=== PATIENT | male | born 1990 | race Two or more races ===

== ENCOUNTER 2018-10-31 16:32 | Emergency (ER) | payer MEDICAID ==
--- NOTE | 2018-10-31 18:05 | ED Physician Chart ---
ED Chief Complaint/HPI - Patient Information Date Seen:: 10/31/18 Time Seen:: 16:40 Chief Complaint:: Right Hand Pain History of Present Illness:: onset x 24 hours of intermittent MS type right hand pain after an accidental contact injury 24 hours [employer]; pt denies LOC, ALOC, AMS, H/As, decreased activity , visual or gait changes, weakness, dizziness, paresthesias, vertigo, neck pain , cough, SIs, C/P, SOB, Abd. Pain, A/N/V/D/C, fever, chills, bleeding, or urinary s/s; pt tried no pain medications; pt's last tetanus shot: < 5 years; UTD Allergies:: Allergies Allergy/AdvReac Type Severity Reaction Status Date / Time No Known Allergies Allergy Verified 10/31/18 16:40 Vitals:: Vital Signs - 8 hr 10/31/18 16:41 Temp 98.4 F HR 68 RR 16 BP 128/7 O2 Sat % 98 Historian:: Patient, Family Member Review:: Nurse's Note Reviewed, Old Chart Reviewed ED Review of Systems - Review of Systems General/Constitutional: No fever, No chills, No weight loss, No weakness, No diaphoresis, No edema, No loss of appetite Skin: No skin lesions, No rash, No bruising Head: No headache, No light-headedness Eyes: No loss of vision, No pain, No diplopia ENT: No earache, No nasal drainage, No sore throat, No tinnitus Neck: No neck pain, No swelling, No thyromegaly, No stiffness, No mass noted Cardio Vascular: No chest pain, No palpitations, No PND, No orthopnea, No edema Pulmonary: No SOB, No cough, No sputum, No wheezing GI: No nausea, No vomiting, No diarrhea, No pain, No melena, No hematochezia, No constipation, No hematemesis G/U: No dysuria, No frequency, No hematuria, No nacturia Musculoskeletal: No bone or joint pain, No back pain, No muscle pain Endocrine: No polyuria, No polydipsia Psychiatric: No prior psych history, No depression, No anxiety, No suicidal ideation, No homicidal ideation, No auditory hallucination, No visual hallucination Hematopoietic: No bruising, No lymphadenopathy Allergic/Immuno: No urticaria, No angioedema Neurological: No syncope, No focal symptoms, No weakness, No paresthesia, No headache, No seizure, No dizziness, No confusion, No vertigo ED Past Medical History - Past Medical History Obtainable: Yes Past Medical History: No significant medical hx Family History: None Social History: Non Smoker, No Alcohol, No Drug Use, Single Surgical History: None Psychiatricy History: None Medication: Reviewed Family Medical History - Family Member Mother History Unknown: Yes ED Physical Exam - Physical Examination General/Constitutional: Awake, Well-developed, well-nourished, Alert, No distress, GCS 15, Non-toxic appearing, Ambulatory Head: Atraumatic Eyes: Lids, conjuctiva normal, PERRL, EOMI Skin: Nl inspection, No rash, No skin lesions, No ecchymosis, Well hydrated, No lymphadenopathy ENMT: External ears, nose nl, TM canals nl, Nasal exam nl, Lips, teeth, gums nl , Oropharynx nl, Tonsils nl Neck: Nontender, Full ROM w/o pain, No JVD, No nuchal rigidity, No bruit, No mass, No stridor Other Neck comments:: supple; no meningeal signs; no cervical tenderness; no bruits Respiratory: Nl effort/Exclusion, Clear to Auscultation, No Wheeze/Rhonchi/Rales Cardio Vascular: RRR, No murmur, gallop, rubs, NL S1 S2, Carotid/Femoral/Distal pulses equal bilaterally GI: No tenderness/rebounding/guarding, No organomegaly, No hernia, Normal BS's, Nondistended, No mass/bruits, No McBurney tenderness, Rectum exam nl Other GI comments:: no pulsatile masses : No CVA tenderness Extremities: No tenderness or effusion, Full ROM, normal strength in all extremities, No edema, Normal digits & nails Other Extremities comments:: + Right Hand Swelling, Deformity, and Tenderness at dorsal lateral MC region with no loss of ROMs; full active ROMs of all joints; no septic joints; no cellulitis; no FBs; no ligament instability; no ligament laxity; good motor, tendon, and sensory functions; good NV functions Neuro/Psych: Alert/oriented, DTR's symmetric, Normal sensory exam, Normal motor strength, Judgement/insight normal, Mood normal, Normal gait, No focal deficits Other Neuro/Psych comments:: no focal signs Misc: Normal back, No paraspinal tenderness ED Labs/Radiology/EKG Results - Radiology Results Comments:: X-Rays: + angulated, comminuted middle shaft Fracture of the right 5th Metacarpal Bone of the Right Hand ED Septic Shock - . Is Septic Shock (SBP<90, OR Lactate>4 mmol\L) present?: No - <6hrs of presentation: Vital Signs: Vital Signs - 8 hr 10/31/18 16:41 Temp 98.4 F HR 68 RR 16 BP 128/7 O2 Sat % 98 ED Reassessment (Disposition) - Reassessment Reassessment:: pt is asymptomatic upon discharge Reassessment Condition:: Improved - Diagnosis Diagnosis:: Right Hand Pain; Right Hand Injury; Right Hand Fracture - Aftercare/Follow up Instructions Aftercare/Follow-Up Instructions:: Counseled pt regarding lab results/diagnosis & need follow up, Refer to Discharge Instructions, Counseled pt & family regarding lab results/diagnosis & need follow up - Patient Disposition Discharge/Transfer:: Home Condition at Disposition:: Stable, Improved (X-rays Instructions; RTER prn if existing s/s reoccur and/or get worse and/or any other new s/s occur; ACIs given for all above Dx; Refer to Orthopedist/Hand Surgeon MANINDER; F/U with PMD in one day or prn; RTER prn if concerned)
--- NOTE | 2018-11-01 09:23 | Diagnostic Imaging Report ---
Right wrist 3 views Indication: Trauma Comparison: Right hand x-rays the same day Findings: There is an angulated mildly displaced fracture of the mid to distal shaft of the fifth metacarpal with surrounding soft tissue swelling. No evidence of dislocation. Impression: Angulated mildly displaced fracture of the mid to distal shaft of the fifth metacarpal.
--- NOTE | 2018-11-01 09:24 | Diagnostic Imaging Report ---
Right hand 3 views while Indication: Trauma Comparison: Right wrist x-rays the same day Findings: There is a angulated mildly displaced fracture involving the mid to distal shaft of the fifth metacarpal with surrounding soft tissue swelling. No dislocation. Impression: Angulated mildly displaced fracture of the mid to distal shaft of the fifth metacarpal with surrounding soft tissue swelling.
== END 2018-10-31 18:37 | disposition home or self-care (01) ==
LOC: ER 16:32
DX: S62.326A Displaced fracture of shaft of fifth metacarpal bone, right hand, initial encounter for closed fracture (principal); X58.XXXA Exposure to other specified factors, initial encounter; Y93.89 Activity, other specified; Y92.89 Other specified places as the place of occurrence of the external cause; Y99.8 Other external cause status
CPT/HCPCS: 73110-TC-RT; 73130-TC-RT; Z7502